=== PATIENT | female | born 1990 | race American Indian/Alaskan Native ===

== ENCOUNTER 2019-03-03 02:41 | Emergency (ER) | payer MEDICAID, SELFPAY ==
[2019-03-03 03:11] VITALS: BP 115/75
--- NOTE | 2019-03-03 05:26 | Emergency Department Report ---
ED Lower Extremity HPI - General Chief Complaint: Extremity Injury, Lower Stated Complaint: BILATERAL LEG/FOOT PAIN Source: patient Mode of arrival: Ambulatory Limitations: No Limitations - History of Present Illness Initial Comments: This is a 28-year-old after emergency medical process emergency room with bilateral lower extremity 8 for 2 days. Past medical history schizoaffective disorder, anxiety, depression, and migraines. She denies suicidal ideation or homicidal ideation. Patient denies taking any illegal drugs. Patient denies swelling, erythema, falls or recent injury, no numbness or tingling, or weakness. MD Complaint: leg injury Onset/Timin -: days(s) Injury: Leg: Right, Left Type of Injury: unknown Place: home Severity: mild Severity scale (0 -10): 7 Improves With: nothing Worsens With: nothing Associated Symptoms: ambulatory. denies: snap/pop sensation, swelling, numbness , tingling, unable to bear weight, able to partially bear weight - Related Data Home Medications Medication Instructions Recorded Confirmed Last Taken Sertraline [Zoloft] 100 mg PO QDAY 05/02/15 04/13/16 01/28/16 13:00 100 mg Previous Rx's Medication Instructions Recorded Last Taken Type oxyCODONE /ACETAMINOPHEN [Percocet 1 tab PO Q6HR PRN #30 tablet 04/14/16 Unknown Rx 5/325] Allergies Allergy/AdvReac Type Severity Reaction Status Date / Time ibuprofen [From Motrin] Allergy nausea, Verified 04/13/16 14:38 dizziness latex Allergy Rash Verified 04/13/16 14:38 ED Review of Systems ROS: Stated complaint: BILATERAL LEG/FOOT PAIN Other details as noted in HPI Constitutional: denies: chills, fever Respiratory: denies: cough, shortness of breath, wheezing Cardiovascular: denies: chest pain, palpitations Gastrointestinal: denies: abdominal pain, nausea, diarrhea Musculoskeletal: arthralgia (BLE). denies: back pain, joint swelling Skin: denies: rash, lesions Neurological: denies: headache, weakness, paresthesias Psychiatric: denies: anxiety, depression ED Past Medical Hx - Past Medical History Previous Medical History?: Yes Hx Hypertension: No Hx Congestive Heart Failure: No Hx Diabetes: No Hx Deep Vein Thrombosis: No Hx Renal Disease: No Hx Sickle Cell Disease: No Hx Headaches / Migraines: Yes (migraines) Hx Seizures: No Hx Psychiatric Treatment: Yes (SCHIZO/BIPOLAR, ANXIETY, DEPRESSION) Hx Asthma: No Hx COPD: No Hx HIV: No Additional medical history: TBI - Surgical History Past Surgical History?: Yes Additional Surgical History: TBI S/P FALL - Social History Smoking Status: Current Every Day Smoker Substance Use Type: None - Medications Home Medications: Home Medications Medication Instructions Recorded Confirmed Last Taken Type Sertraline [Zoloft] 100 mg PO QDAY 05/02/15 04/13/16 01/28/16 13:00 History 100 mg oxyCODONE /ACETAMINOPHEN [Percocet 1 tab PO Q6HR PRN #30 tablet 04/14/16 Unknown Rx 5/325] ED Physical Exam - General Limitations: No Limitations General appearance: alert, in no apparent distress - Respiratory Respiratory exam: Present: normal lung sounds bilaterally. Absent: respiratory distress - Cardiovascular Cardiovascular Exam: Present: regular rate, normal rhythm. Absent: systolic murmur, diastolic murmur, rubs, gallop - Extremities Exam Extremities exam: Present: normal inspection, full ROM, normal capillary refill. Absent: pedal edema, joint swelling, calf tenderness - Neurological Exam Neurological exam: Present: alert, oriented X3, normal gait - Psychiatric Psychiatric exam: Present: normal affect, normal mood - Skin Skin exam: Present: warm, dry, intact, normal color. Absent: rash ED Course Vital Signs 03/03/19 03:01 Temperature 98.4 F Pulse Rate 112 H Respiratory 18 Rate Blood Pressure 115/75 O2 Sat by Pulse 98 Oximetry ED Lower Extremity MDM - Medical Decision Making Patient was examined by me. Vitals are normal and patient is in no acute distress. Normal focal exam. When I went back to discuss options with patient she was called from [facility] room. There were several attempts by the nurse to find her and unable. Critical care attestation.: If time is entered above; I have spent that time in minutes in the direct care of this critically ill patient, excluding procedure time. ED Disposition Clinical Impression: Eloped from emergency department Disposition: ELOPED Is pt being admited?: No Condition: Stable
== END 2019-03-03 08:45 | disposition left against medical advice (07) ==
LOC: ED 02:41
DX: M79.605 Pain in left leg (principal); M79.604 Pain in right leg; F25.9 Schizoaffective disorder, unspecified; G43.909 Migraine, unspecified, not intractable, without status migrainosus; F41.9 Anxiety disorder, unspecified; F32.9 Major depressive disorder, single episode, unspecified
CPT/HCPCS: 99281

== ENCOUNTER 2019-03-03 07:49 | Emergency (ER) | payer MEDICAID ==
[2019-03-03 09:20] LABS: Bacteria,Urine 4+ /HPF (Negative); Bilirubin,Urine NEG (Negative); Blood,Urine NEG (Negative); Color,Urine Amber (Yellow); Mucus,Urine 3+ /HPF
--- NOTE | 2019-03-03 09:40 | Emergency Department Report ---
ED Psych HPI - General Chief Complaint: Medical Clearance Stated Complaint: MH Time Seen by Provider: 03/03/19 08:14 Source: patient Mode of arrival: Ambulatory - History of Present Illness Initial Comments: 28-year-old female with history of schizophrenia and polysubstance abuse presents to triage stating there is somatic delusions about her "eyeballs". On my encounter the patient appears to be relatively calm. She states that she has been having cramps in her legs from walking a lot. She is requesting admission to a psychiatric facility. She states she lives with her mother. History is limited due to her psychiatric status. She is not complaining of any acute pain. MD Complaint: other (psychosis with somatic delusions) - Related Data Home Medications Medication Instructions Recorded Confirmed Last Taken Sertraline [Zoloft] 100 mg PO QDAY 05/02/15 03/03/19 01/28/16 13:00 100 mg ALPRAZolam [Xanax TAB] 1 mg PO BID PRN 03/03/19 03/03/19 Unknown Mirtazapine [Remeron 30mg TAB] 30 mg PO QHS 03/03/19 03/03/19 Unknown Previous Rx's Medication Instructions Recorded Last Taken Type oxyCODONE /ACETAMINOPHEN [Percocet 1 tab PO Q6HR PRN #30 tablet 04/14/16 Unknown Rx 5/325] Mirtazapine [Remeron 15mg TAB] 15 mg PO QHS #30 tablet 03/03/19 Unknown Rx QUEtiapine [SEROquel] 200 mg PO QDAY #30 tablet 03/03/19 Unknown Rx Allergies Allergy/AdvReac Type Severity Reaction Status Date / Time ibuprofen [From Motrin] Allergy nausea, Verified 03/03/19 07:50 dizziness latex Allergy Rash Verified 03/03/19 07:50 ED Review of Systems ROS: Stated complaint: MH Other details as noted in HPI Comment: Unobtainable due to pts medical conditions ED Past Medical Hx - Past Medical History Hx Hypertension: No Hx Congestive Heart Failure: No Hx Diabetes: No Hx Deep Vein Thrombosis: No Hx Renal Disease: No Hx Sickle Cell Disease: No Hx Headaches / Migraines: Yes (migraines) Hx Seizures: No Hx Psychiatric Treatment: Yes (SCHIZO/BIPOLAR, ANXIETY, DEPRESSION) Hx Asthma: No Hx COPD: No Hx HIV: No Additional medical history: TBI - Surgical History Additional Surgical History: TBI S/P FALL - Social History Smoking Status: Current Every Day Smoker - Medications Home Medications: Home Medications Medication Instructions Recorded Confirmed Last Taken Type Sertraline [Zoloft] 100 mg PO QDAY 05/02/15 03/03/19 01/28/16 13:00 History 100 mg oxyCODONE /ACETAMINOPHEN [Percocet 1 tab PO Q6HR PRN #30 tablet 04/14/16 03/03/19 Unknown Rx 5/325] ALPRAZolam [Xanax TAB] 1 mg PO BID PRN 03/03/19 03/03/19 Unknown History Mirtazapine [Remeron 15mg TAB] 15 mg PO QHS #30 tablet 03/03/19 Unknown Rx Mirtazapine [Remeron 30mg TAB] 30 mg PO QHS 03/03/19 03/03/19 Unknown History QUEtiapine [SEROquel] 200 mg PO QDAY #30 tablet 03/03/19 Unknown Rx ED Physical Exam - General Limitations: No Limitations General appearance: alert, in no apparent distress - Head Head exam: Present: normocephalic, other (healed scars for head secondary to previous traumatic brain injury) - Eye Eye exam: Present: normal appearance, PERRL, EOMI. Absent: scleral icterus - ENT ENT exam: Present: mucous membranes moist - Neck Neck exam: Present: normal inspection. Absent: tenderness, meningismus - Respiratory Respiratory exam: Present: normal lung sounds bilaterally. Absent: respiratory distress - Cardiovascular Cardiovascular Exam: Present: regular rate, normal rhythm. Absent: systolic murmur, diastolic murmur, rubs, gallop - GI/Abdominal GI/Abdominal exam: Present: soft, normal bowel sounds. Absent: distended, tenderness, guarding, rebound - Extremities Exam Extremities exam: Present: normal inspection - Back Exam Back exam: Present: normal inspection - Neurological Exam Neurological exam: Present: alert, oriented X3, CN II-XII intact, normal gait. Absent: motor sensory deficit - Psychiatric Psychiatric exam: Present: normal mood, flat affect - Skin Skin exam: Present: warm, dry, intact, normal color. Absent: rash ED Course Vital Signs 03/03/19 03/03/19 03/03/19 08:00 08:01 12:00 Temperature 98.7 F 98.5 F Pulse Rate 102 H Respiratory 18 18 18 Rate Blood Pressure 136/81 [Left] O2 Sat by Pulse 100 100 100 Oximetry - Reevaluation(s) Reevaluation #1: Patient remained calm and cooperative. She was not actively hallucinating or delusional. I spoke to Stella (mental health counselor). She referred the patient to outpatient follow-up. The patient is requesting renewal of her psychiatric medications. I am going to restart her on Remeron and Seroquel. 03/03/19 12:45 ED Medical Decision Making - Lab Data Result diagrams: 03/03/19 09:00 03/03/19 09:00 Critical care attestation.: If time is entered above; I have spent that time in minutes in the direct care of this critically ill patient, excluding procedure time. ED Disposition Clinical Impression: Schizophrenia Qualifiers: Schizophrenia type: unspecified Qualified Code(s): F20.9 - Schizophrenia, unspecified Disposition: DC-01 TO HOME OR SELFCARE Is pt being admited?: No Does the pt Need Aspirin: No Condition: Stable Instructions: Schizophrenia (ED) Additional Instructions: Return if any continued or problem. Follow-up with clinic. Medications as d irected. Prescriptions: Mirtazapine [Remeron 15mg TAB] 15 mg PO QHS #30 tablet QUEtiapine [SEROquel] 200 mg PO QDAY #30 tablet Referrals: [facility] [Outside] - 2-3 Days (Tuesday - Tuesday 8:00am - 5:00pm. Walk-In only Must arrive at 7:45 as available slots are first come, first served. To be eligible for services, you must bring the following with you: 1. Proof of Identity 2. Proof of Residence 3. Proof of Income 4. Insurance Cards 5. Referral documents and/or hospital discharge papers.) MOLLY CLINTON MD [Primary Care Provider] - 3-5 Days Time of Disposition: 12:49
[2019-03-03 09:47] LABS: Amphetamine Screen,Urine PRESUMPTIVE NEGATIVE; Benzodiazepines Screen,Urine PRESUMPTIVE NEGATIVE; Cannabinoid Screen,Urine PRESUMPTIVE NEGATIVE; Cocaine Screen,Urine PRESUMPTIVE NEGATIVE; Methadone Screen,Urine PRESUMPTIVE NEGATIVE; Opiate Screen,Urine PRESUMPTIVE NEGATIVE
[2019-03-03 09:49] LABS: BUN/Creatinine Ratio 10; Blood Urea Nitrogen 7 mg/dL (7-17); Hemolysis Index 26
[2019-03-03 09:50] LABS: Creatine Kinase MB 2.2 ng/mL (0.0-4.0)
[2019-03-03 09:52] LABS: Alanine Aminotransferase 6 units/L (7-56); Albumin 4.8 g/dL (3.9-5)
[2019-03-03 10:00] LABS: Basophils # (Auto) 0.1 K/mm3 (0.0-0.1); Basophils % (Auto) 0.8 % (0.0-1.8); Eosinophils # (Auto) 0.1 K/mm3 (0.0-0.4); Eosinophils % (Auto) 1.6 % (0.0-4.3); Hematocrit 40.7 % (30.3-42.9); Hemoglobin 14.2 gm/dl (10.1-14.3); Lymphocytes # (Auto) 1.5 K/mm3 (1.2-5.4); Lymphocytes % (Auto) 21.9 % (13.4-35.0); Mean Corpuscular HGB Conc 35 % (30-34); Mean Corpuscular Volume 93 fl (79-97); Monocytes # (Auto) 0.8 K/mm3 (0.0-0.8); Monocytes % (Auto) 12.2 % (0.0-7.3); Red Blood Count 4.38 M/mm3 (3.65-5.03); Red Cell Distribution Width 14.3 % (13.2-15.2)
[2019-03-03 10:18] LABS: Platelet Count 289 K/mm3 (140-440)
[2019-03-03 11:17] LABS: Bilirubin,Direct < 0.2 mg/dL (0-0.2)
[2019-03-03 12:20] VITALS: BP 136/81
== END 2019-03-03 13:28 | disposition home or self-care (01) ==
LOC: EEVIPCON 07:49 → ED 07:49
DX: F20.9 Schizophrenia, unspecified (principal); M79.605 Pain in left leg; M79.604 Pain in right leg; G43.909 Migraine, unspecified, not intractable, without status migrainosus; F31.9 Bipolar disorder, unspecified; F17.200 Nicotine dependence, unspecified, uncomplicated; Z79.899 Other long term (current) drug therapy; Z88.6 Allergy status to analgesic agent; Z91.040 Latex allergy status
CPT/HCPCS: 36415; 80048; 80076; 80307; 81001; 82550; 82553; 84703; 85025; 87086; 99284; G0480; 80320; 99281; 99282

== ENCOUNTER 2019-03-03 15:57 | Emergency (ER) | payer MEDICAID ==
--- NOTE | 2019-03-03 16:20 | Emergency Department Report ---
Blank Doc - Documentation Documentation: 28 y/o female presents to ED c/o continued symptoms from two previous visits t [facility]. No worsening symptoms or new symptoms but has continued symptoms so checked in again. Malaise, dizziness,leg pain, back pain. No PCP. Lives [facility] and forth between [facility]
[2019-03-03 17:23] VITALS: BP 119/72
--- NOTE | 2019-03-03 17:24 | Emergency Department Report ---
ED General Adult HPI - General Chief complaint: Dizziness Stated complaint: LIGHT HEAD/DIZZY Time Seen by Provider: 03/03/19 16:16 Source: patient, RN notes reviewed, old records reviewed Mode of arrival: Ambulatory Limitations: No Limitations - History of Present Illness Initial comments: This is a 28-year-old female. The patient is not known to this provider previously. Has a history of schizophrenia, bipolar, anxiety, depression and migraine headache. Also has distant history of traumatic brain injury status post fall, 26 years ago. This is the patient's third visit in the past 24 hours. Her previous charts are reviewed. Her previous laboratory studies are reviewed. The patient makes no complaints of chest pain or shortness of breath with this provider. She complains of chronic musculoskeletal joint pain, present for years. She complains of left-sided headache, present for over 2 decades. She endorses no chest pain, no shortness of breath, no abdominal pain, no urinary symptoms, and denies homicidality and suicidality. On review of systems, she endorses that she is currently staying with a friend, but she is interested in outpatient resources for homeless shelters. Headache left-sided, not sudden or thunderclap in nature, not maximal in intensity. It does not radiate anywhere. Joint pain in the bilateral ankles, calves, knees, intermittent, throbbing, achy, did not radiate anywhere, decreases with rest, increases with palpation and range of motion. -: year(s) Location: head, left, right, lower extremity Radiation: other Quality: other Consistency: other Improves with: other Worsens with: other Associated Symptoms: other - Related Data Home Medications Medication Instructions Recorded Confirmed Last Taken Sertraline [Zoloft] 100 mg PO QDAY 05/02/15 03/03/19 01/28/16 13:00 100 mg ALPRAZolam [Xanax TAB] 1 mg PO BID PRN 03/03/19 03/03/19 Unknown Mirtazapine [Remeron 30mg TAB] 30 mg PO QHS 03/03/19 03/03/19 Unknown Previous Rx's Medication Instructions Recorded Last Taken Type oxyCODONE /ACETAMINOPHEN [Percocet 1 tab PO Q6HR PRN #30 tablet 04/14/16 Unknown Rx 5/325] Mirtazapine [Remeron 15mg TAB] 15 mg PO QHS #30 tablet 03/03/19 Unknown Rx QUEtiapine [SEROquel] 200 mg PO QDAY #30 tablet 03/03/19 Unknown Rx Allergies Allergy/AdvReac Type Severity Reaction Status Date / Time ibuprofen [From Motrin] Allergy nausea, Verified 03/03/19 15:59 dizziness latex Allergy Rash Verified 03/03/19 15:59 ED Review of Systems ROS: Stated complaint: LIGHT HEAD/DIZZY Other details as noted in HPI Constitutional: denies: fever Eyes: denies: eye discharge ENT: denies: epistaxis Respiratory: denies: cough Cardiovascular: denies: chest pain Gastrointestinal: denies: abdominal pain Musculoskeletal: arthralgia, myalgia Skin: denies: lesions Neurological: headache Psychiatric: denies: homicidal thoughts, suicidal thoughts ED Past Medical Hx - Past Medical History Hx Hypertension: No Hx Congestive Heart Failure: No Hx Diabetes: No Hx Deep Vein Thrombosis: No Hx Renal Disease: No Hx Sickle Cell Disease: No Hx Headaches / Migraines: Yes (migraines) Hx Seizures: No Hx Psychiatric Treatment: Yes (SCHIZO/BIPOLAR, ANXIETY, DEPRESSION) Hx Asthma: No Hx COPD: No Hx HIV: No Additional medical history: TBI - Surgical History Additional Surgical History: TBI S/P FALL - Social History Smoking Status: Current Every Day Smoker Substance Use Type: None - Medications Home Medications: Home Medications Medication Instructions Recorded Confirmed Last Taken Type Sertraline [Zoloft] 100 mg PO QDAY 05/02/15 03/03/19 01/28/16 13:00 History 100 mg oxyCODONE /ACETAMINOPHEN [Percocet 1 tab PO Q6HR PRN #30 tablet 04/14/16 03/03/19 Unknown Rx 5/325] ALPRAZolam [Xanax TAB] 1 mg PO BID PRN 03/03/19 03/03/19 Unknown History Mirtazapine [Remeron 15mg TAB] 15 mg PO QHS #30 tablet 03/03/19 Unknown Rx Mirtazapine [Remeron 30mg TAB] 30 mg PO QHS 03/03/19 03/03/19 Unknown History QUEtiapine [SEROquel] 200 mg PO QDAY #30 tablet 03/03/19 Unknown Rx ED Physical Exam - General Limitations: No Limitations General appearance: alert, in no apparent distress, other (patient sleeping in stretcher upon entering the room. She is in no acute distress.) - Head Head exam: Present: normocephalic - Eye Eye exam: Present: normal appearance, EOMI. Absent: nystagmus - ENT ENT exam: Present: normal exam, normal orophraynx, mucous membranes moist, normal external ear exam - Neck Neck exam: Present: normal inspection, full ROM. Absent: tenderness, meningismus - Respiratory Respiratory exam: Present: normal lung sounds bilaterally. Absent: respiratory distress - Cardiovascular Cardiovascular Exam: Present: regular rate, normal rhythm, normal heart sounds. Absent: bradycardia, tachycardia, irregular rhythm, systolic murmur, diastolic murmur, rubs, gallop - GI/Abdominal GI/Abdominal exam: Present: soft. Absent: distended, tenderness, guarding, rebound, rigid, pulsatile mass - Extremities Exam Extremities exam: Present: normal inspection, full ROM, other (there is no palpable cord. There is negative Homans sign.2+ pulses noted in the bilateral upper, lower extremities. Compartments soft. No long bony tenderness. The pelvis is stable.). Absent: pedal edema, joint swelling, calf tenderness - Back Exam Back exam: Present: normal inspection, full ROM. Absent: tenderness, CVA tenderness (R), CVA tenderness (L), paraspinal tenderness, vertebral tenderness - Neurological Exam Neurological exam: Present: alert, oriented X3, normal gait, other (Extraocular movements intact. Tongue midline. No facial droop. Facial sensation intact to light touch in the V1, V2, V3 distribution bilaterally. 5 and 5 strength in 4 extremities.. Sensation is intact to light touch in 4 extremities.). Absent: motor sensory deficit - Psychiatric Psychiatric exam: Present: flat affect. Absent: homicidal ideation, suicidal ideation - Skin Skin exam: Present: warm, dry, intact, normal color. Absent: rash ED Course Vital Signs 03/03/19 03/03/19 16:14 17:07 Temperature 98.3 F Pulse Rate 144 H 99 H Respiratory 16 16 Rate Blood Pressure 124/75 O2 Sat by Pulse 100 100 Oximetry ED Medical Decision Making - Lab Data Vital Signs 03/03/19 03/03/19 03/03/19 16:14 17:07 17:19 Temperature 98.3 F Pulse Rate 144 H 99 H Respiratory 16 16 18 Rate Blood Pressure 124/75 O2 Sat by Pulse 100 100 100 Oximetry - Medical Decision Making Differential diagnosis, including but not limited to: Homelessness, nonspecific Sandborn I disorder, nonspecific Sandborn II disorder, encounter for case management Assessment and plan: 28-year-old female who presents to this department for the third time in 24 hours. She's had extensive workup by my colleagues Her laboratory studies are reviewed and appreciated. Psychiatric consultation is reviewed and appreciated. The patient indicates her primary reason for coming to the department for the third time is requests for senior living resources. She is sleeping comfortably in her stretcher, and she indicates that when she came in, she was having a panic attack. The patient does not meet 1013 criteria. She is not hypoxic, her tachycardia has resolved, and she is not. The patient endorses no DVT or pulmonary embolus risk factors, and the patient is low risk by well's criteria. Case management consult has been requested. Her medications were refilled earlier on this morning by my colleague Dr. Treadwell. The patient does not appear to have an emergent medical condition at this time. The patient does not appear to have decompensated psychiatric condition at this time that requires 1013. She is somewhat disorganized, but she can follow-up as an outpatient. Critical care attestation.: If time is entered above; I have spent that time in minutes in the direct care of this critically ill patient, excluding procedure time. ED Disposition Clinical Impression: Case management patient, Homelessness Disposition: DC-01 TO HOME OR SELFCARE Is pt being admited?: No Does the pt Need Aspirin: No Condition: Good Additional Instructions: Continue outpatient medications. Follow up with the primary care doctor or mental health professional within the next 4-6 weeks. Follow up with the senior living resources that were provided to the patient by case management. Return to the emergency room right away with new, worse or different symptoms, or symptoms not present on initial emergency room evaluation. Referrals: MOLLY CLINTON MD [Primary Care Provider] - [facility] [Outside] - 3-5 Days
== END 2019-03-03 18:12 | disposition home or self-care (01) ==
LOC: ED 15:57
DX: G43.909 Migraine, unspecified, not intractable, without status migrainosus (principal); M79.605 Pain in left leg; M79.604 Pain in right leg; Z71.89 Other specified counseling; F31.9 Bipolar disorder, unspecified; F50.9 Eating disorder, unspecified; F41.9 Anxiety disorder, unspecified; F17.200 Nicotine dependence, unspecified, uncomplicated; Z79.899 Other long term (current) drug therapy; Z59.0 Homelessness; Z88.6 Allergy status to analgesic agent; Z91.040 Latex allergy status
CPT/HCPCS: 99282

== ENCOUNTER 2021-02-11 14:30 | Emergency (ER) | payer SELFPAY ==
[2021-02-11 15:33] VITALS: BP 108/73
[2021-02-11] MEDS ORDERED: TETRACAINE 0.5% OPHTH SOLN 4ML OU STA (15:48)
[2021-02-11] MEDS ORDERED: FLUORESCEIN 1 MG STRIP OP ONE (15:48)
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
== END 2021-02-11 16:32 | disposition home or self-care (01) ==
LOC: ED 14:30
DX: H10.9 Unspecified conjunctivitis (principal); B96.89 Other specified bacterial agents as the cause of diseases classified elsewhere; G43.909 Migraine, unspecified, not intractable, without status migrainosus; F17.200 Nicotine dependence, unspecified, uncomplicated; F41.9 Anxiety disorder, unspecified; F32.9 Major depressive disorder, single episode, unspecified; Z88.6 Allergy status to analgesic agent; Z91.040 Latex allergy status; Z79.899 Other long term (current) drug therapy
CPT/HCPCS: 99282; 99283

== ENCOUNTER 2021-05-08 19:56 | Emergency (ER) | payer OTHER ==
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
[2021-05-09 03:33] LABS: HCG Qualitative,Urine Negative (Negative)
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
--- NOTE | 2021-05-09 04:48 | XRay Report ---
Left foreleg 3 views INDICATION: Left foreleg pain IMPRESSION: The left foreleg is intact. Signer Name: Palmer Jha MD Signed: 05/09/2021 4:44 AM Workstation Name: [id number]
--- NOTE | 2021-05-09 04:53 | XRay Report ---
Lumbar spine 3 views INDICATION: Low back pain IMPRESSION: No acute fracture or subluxation is identified. Signer Name: Palmer Jha MD Signed: 05/09/2021 4:48 AM Workstation Name: [id number]
[2021-05-09 05:36] VITALS: BP 121/62
== END 2021-05-09 05:37 | disposition left against medical advice (07) ==
LOC: ED 19:56
DX: S33.5XXA Sprain of ligaments of lumbar spine, initial encounter (principal); S80.12XA Contusion of left lower leg, initial encounter; M25.552 Pain in left hip; M79.605 Pain in left leg; M54.5 Low back pain; F25.0 Schizoaffective disorder, bipolar type; F41.9 Anxiety disorder, unspecified; G43.909 Migraine, unspecified, not intractable, without status migrainosus; Z91.040 Latex allergy status; Z88.6 Allergy status to analgesic agent; Z79.899 Other long term (current) drug therapy; Z98.890 Other specified postprocedural states; V09.9XXA Pedestrian injured in unspecified transport accident, initial encounter; Y92.410 Unspecified street and highway as the place of occurrence of the external cause; Y93.89 Activity, other specified; Y99.8 Other external cause status
CPT/HCPCS: 72100; 81025

== ENCOUNTER 2021-06-28 22:38 | Emergency (ER) | payer MEDICAID, OTHER ==
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
--- NOTE | 2021-06-28 23:47 | XRay Report ---
CHEST 2 VIEWS INDICATION / CLINICAL INFORMATION: chest pain. COMPARISON: None available. FINDINGS: SUPPORT DEVICES: None. HEART / MEDIASTINUM: No significant abnormality. LUNGS / PLEURA: No significant pulmonary or pleural abnormality. No pneumothorax. ADDITIONAL FINDINGS: No significant additional findings. IMPRESSION: 1. No acute findings. Signer Name: Goyo Esparza MD Signed: 06/28/2021 11:43 PM Workstation Name: [id number]
[2021-06-29 01:06] VITALS: BP 121/74
--- NOTE | 2021-06-29 11:11 | Electrocardiograph Report ---
[facility] Test Date: 2021-06-28 Test Time: 22:57:47 Pat Name: JANIYA CARMICHAEL Department: Room: Gender: F [employer]ician: : 1990 Requested By: LAVELL DONATO Order Number: [id number] Reading MD: [place] Pike Measurements Intervals [place] Rate: 73 P: 53 OK: 147 QRS: 62 QRSD: 87 T: 62 QT: 364 QTc: 402 Interpretive Statements Sinus rhythm No previous ECG available for comparison Electronically Signed On 06-29-2021 11:10:43 EDT by [place] Pike
== END 2021-06-29 01:08 | disposition home or self-care (01) ==
LOC: ED 22:38
DX: R07.89 Other chest pain (principal); M54.50 Low back pain, unspecified; G43.909 Migraine, unspecified, not intractable, without status migrainosus; F41.9 Anxiety disorder, unspecified; F32.9 Major depressive disorder, single episode, unspecified; F17.200 Nicotine dependence, unspecified, uncomplicated; F12.90 Cannabis use, unspecified, uncomplicated; Z72.89 Other problems related to lifestyle; Z88.6 Allergy status to analgesic agent; Z91.040 Latex allergy status; Z91.018 Allergy to other foods; Z79.899 Other long term (current) drug therapy; V87.7XXA Person injured in collision between other specified motor vehicles (traffic), initial encounter; Y93.89 Activity, other specified; Y92.488 Other paved roadways as the place of occurrence of the external cause; Y99.8 Other external cause status
CPT/HCPCS: 71046; 93005; 99283

== ENCOUNTER 2021-11-19 17:44 | Emergency (ER) | payer SELFPAY | END 2021-11-19 21:00 | disposition left against medical advice (07) | LOC: ED 17:44 | DX: R10.9 Unspecified abdominal pain (principal); Z53.21 Procedure and treatment not carried out due to patient leaving prior to being seen by health care provider ==